=== PATIENT | female | born 1985 | race American Indian/Alaskan Native ===

== ENCOUNTER 2018-02-15 13:47 | Emergency (ER) | payer MEDICAID ==
[2018-02-15 14:11] VITALS: BP 142/98
--- NOTE | 2018-02-15 15:51 | Emergency Department Report ---
Eye Injury/Foreign Body - HPI Duration: 5 Days Eye Location: Right Severity: Moderate Eye Symptoms: Eye Pain: Yes, Blurred Vision: Yes, Eye Redness: Yes, Grinding/ Hammering Metal: No, Used Eye Protection: No, Contact Lens Use: No, Recalls Injury: No, Photophobia: No Other History: Patient is a director at a childcare center and has developed some redness of the eye with drainage. ED Review of Systems ROS: Stated complaint: POSS PINK EYE Other details as noted in HPI Comment: All other systems reviewed and negative ED Past Medical Hx - Past Medical History Additional medical history: neurocardiogenic syncope - Surgical History Past Surgical History?: Yes Additional Surgical History: c section. wisdom teeth - Social History Smoking Status: Current Every Day Smoker Substance Use Type: Alcohol - Medications Home Medications: Home Medications Medication Instructions Recorded Confirmed Last Taken Type Gentamicin 0.3% Ophth Soln 2 drops OP Q4H #1 bottle 02/15/18 Unknown Rx Naphazoline HCl/Pheniramine 15 ml OP TID #1 bottle 02/15/18 Unknown Rx [Naphcon-A Eye Drops] Eye Injury Exam - Exam General: Vital signs noted. No distress. Alert and acting appropriately. Patient's heart and lung exams are within normal limits. Exam shows an gentle injection and a mild exudate. This is present on the right eye only. ED Course Vital Signs 02/15/18 14:07 Temperature 98.4 F Pulse Rate 82 Respiratory 16 Rate Blood Pressure 142/98 O2 Sat by Pulse 100 Oximetry Critical care attestation.: If time is entered above; I have spent that time in minutes in the direct care of this critically ill patient, excluding procedure time. ED Disposition Clinical Impression: Bacterial conjunctivitis Disposition: DC-01 TO HOME OR SELFCARE Is pt being admited?: No Does the pt Need Aspirin: No Condition: Stable Instructions: Conjunctivitis (ED) Prescriptions: Gentamicin 0.3% Ophth Soln 2 drops OP Q4H #1 bottle Naphazoline HCl/Pheniramine [Naphcon-A Eye Drops] 15 ml OP TID #1 bottle Referrals: PRIMARY CARE, [Primary Care Provider] - 3-5 Days Forms: Work/School Release Form(ED)
== END 2018-02-15 15:59 | disposition home or self-care (01) ==
LOC: ED 13:47
DX: H10.9 Unspecified conjunctivitis (principal); F17.200 Nicotine dependence, unspecified, uncomplicated
CPT/HCPCS: 99282

== ENCOUNTER 2018-12-16 16:18 | Emergency (ER) | payer MEDICAID, OTHER ==
[2018-12-16] MEDS ORDERED: ASPIRIN PO ONE (16:37)
[2018-12-16 17:01] LABS: HCG Qualitative,Urine Negative (Negative)
[2018-12-16 17:04] LABS: Basophils % (Auto) 0.5 % (0.0-1.8); Eosinophils # (Auto) 0.1 K/mm3 (0.0-0.4); Eosinophils % (Auto) 0.8 % (0.0-4.3); Hematocrit 40.8 % (30.3-42.9); Hemoglobin 13.6 gm/dl (10.1-14.3); Lymphocytes # (Auto) 1.9 K/mm3 (1.2-5.4); Lymphocytes % (Auto) 27.8 % (13.4-35.0); Mean Corpuscular HGB Conc 33 % (30-34); Mean Corpuscular Volume 98 fl (79-97); Monocytes # (Auto) 0.4 K/mm3 (0.0-0.8); Monocytes % (Auto) 5.3 % (0.0-7.3); Platelet Count 251 K/mm3 (140-440); Red Blood Count 4.17 M/mm3 (3.65-5.03); Red Cell Distribution Width 14.4 % (13.2-15.2)
[2018-12-16 17:05] LABS: Bacteria,Urine 1+ /HPF (Negative); Bilirubin,Urine NEG (Negative); Blood,Urine NEG (Negative); Color,Urine Yellow (Yellow); Mucus,Urine FEW /HPF; Protein,Urine <15 mg/dL mg/dL (Negative)
[2018-12-16 17:21] LABS: BUN/Creatinine Ratio 11; Blood Urea Nitrogen 10 mg/dL (7-17); Calcium 9.9 mg/dL (8.4-10.2); Hemolysis Index 0
--- NOTE | 2018-12-16 18:28 | XRay Report ---
PROCEDURE: XR CHEST 1V AP HISTORY: Chest Pain FINDINGS: Single frontal view of the chest was acquired. The heart is normal in size. The lungs appea r clear. The pleura and mediastinum are within normal limits. IMPRESSION: No active disease in the chest This document is electronically signed by Gaudencio Arias MD., December 16 2018 06:26:44 PM ET
--- NOTE | 2018-12-16 18:47 | Emergency Department Report ---
ED Dizziness HPI - General Chief Complaint: Dizziness Stated Complaint: HEART CONDITION/DIZZINESS/ (L) ARM NUMBNESS Time Seen by Provider: 12/16/18 18:32 Source: patient Mode of arrival: Ambulatory Limitations: No Limitations - History of Present Illness Initial Comments: Patient is 33 years old female, nontoxic with no significant past medical history except for dizziness. Patient started having dizziness weeks ago. Patient stated that she had felt hot and started having generalized numbness and is waiting accompanied with shortness of breath and chest pain. Patient stated [facility] and she was given Tylenol with codeine for headache but nothing else was done for hot. Patient denied any weakness, numbness or tingling sensation. No bowel or bladder incontinence. MD Complaint: dizziness -: week(s) (2) Timing: gradual onset Description: sense of movement, "room spinning" History of Same: Yes Severity: mild Improves With: remaining still Associated Symptoms: denies other symptoms - Related Data Previous Rx's Medication Instructions Recorded Last Taken Type Gentamicin 0.3% Ophth Soln 2 drops OP Q4H #1 bottle 02/15/18 Unknown Rx Naphazoline HCl/Pheniramine 15 ml OP TID #1 bottle 02/15/18 Unknown Rx [Naphcon-A Eye Drops] Allergies Allergy/AdvReac Type Severity Reaction Status Date / Time No Known Allergies Allergy Verified 12/16/18 16:20 ED Review of Systems ROS: Stated complaint: HEART CONDITION/DIZZINESS/ (L) ARM NUMBNESS Other details as noted in HPI Comment: All other systems reviewed and negative Constitutional: denies: chills, fever Respiratory: shortness of breath. denies: cough, orthopnea Cardiovascular: chest pain Gastrointestinal: denies: abdominal pain, nausea, vomiting, diarrhea, constipation, hematemesis, hematochezia Musculoskeletal: denies: back pain Neurological: headache, vertigo. denies: weakness, numbness, paresthesias, confusion Psychiatric: anxiety ED Past Medical Hx - Past Medical History Hx Heart Attack/AMI: Yes Hx Psychiatric Treatment: Yes (alcohol abuse last drink 12/08/2018) Additional medical history: neurocardiogenic syncope, cardiomyopathy - Surgical History Additional Surgical History: c section. wisdom teeth - Social History Smoking Status: Current Every Day Smoker Substance Use Type: None - Medications Home Medications: Home Medications Medication Instructions Recorded Confirmed Last Taken Type Gentamicin 0.3% Ophth Soln 2 drops OP Q4H #1 bottle 02/15/18 Unknown Rx Naphazoline HCl/Pheniramine 15 ml OP TID #1 bottle 02/15/18 Unknown Rx [Naphcon-A Eye Drops] ED Physical Exam - General Limitations: No Limitations General appearance: alert, in no apparent distress - Head Head exam: Present: atraumatic, normocephalic, normal inspection - Eye Eye exam: Present: normal appearance, PERRL - ENT ENT exam: Present: normal exam, normal orophraynx, mucous membranes moist - Neck Neck exam: Present: normal inspection, full ROM. Absent: tenderness, meningismus, lymphadenopathy, thyromegaly - Respiratory Respiratory exam: Present: normal lung sounds bilaterally - Cardiovascular Cardiovascular Exam: Present: regular rate, normal rhythm, normal heart sounds - GI/Abdominal GI/Abdominal exam: Present: soft, normal bowel sounds. Absent: distended, tenderness, guarding, rebound, rigid, organomegaly, mass, bruit, pulsatile mass, hernia - Extremities Exam Extremities exam: Present: normal inspection, full ROM, normal capillary refill - Back Exam Back exam: Present: normal inspection, full ROM. Absent: tenderness, CVA tenderness (R), CVA tenderness (L), muscle spasm, paraspinal tenderness, vertebral tenderness - Neurological Exam Neurological exam: Present: alert, oriented X3, CN II-XII intact, normal gait, reflexes normal - Skin Skin exam: Present: warm, intact, normal color ED Course Vital Signs 12/16/18 12/16/18 12/16/18 16:32 18:37 19:10 Temperature 98.1 F 98.2 F Pulse Rate 81 100 H 98 H Respiratory 18 16 18 Rate Blood Pressure 109/76 Blood Pressure 124/79 117/73 [Left] O2 Sat by Pulse 100 96 99 Oximetry 12/16/18 21:01 Temperature Pulse Rate 59 L Respiratory 20 Rate Blood Pressure 117/73 Blood Pressure [Left] O2 Sat by Pulse 99 Oximetry ED Medical Decision Making - Lab Data Result diagrams: 12/16/18 16:52 12/16/18 16:52 - EKG Data -: EKG Interpreted by Ia EKG shows normal: sinus rhythm Rate: normal - EKG Data Interpretation: no acute changes - Radiology Data Radiology results: report reviewed CT brain is unremarkable. - Medical Decision Making Patient is 33 years old female, nontoxic with no significant past medical history except for dizziness. Patient started having dizziness weeks ago. Patient stated that she had felt hot and started having generalized numbness and is waiting accompanied with shortness of breath and chest pain. Patient stated that [facility] and she was given Tylenol with codeine for headache but nothing else was done for hot. Patient denied any weakness, numbness or tingling sensation. No bowel or bladder incontinence. Patient stated that she is feeling much better. Patient denied any dizziness. Chest pain is resolved. No more headache. CT scan is unremarkable for acute f inding. EKG is unremarkable. Troponin is negative. D-dimer is negative also. I advised the patient to follow up with her primary care physician in the next 2-3 days And to return to the ER if symptoms are not improved. Critical care attestation.: If time is entered above; I have spent that time in minutes in the direct care of this critically ill patient, excluding procedure time. ED Disposition Clinical Impression: Dizziness, Sinusitis Disposition: DC-01 TO HOME OR SELFCARE Is pt being admited?: No Condition: Stable Instructions: Dizziness (ED), Sinusitis (ED) Referrals: ROBINSON ZHAO MD [Primary Care Provider] - 3-5 Days
[2018-12-16] MEDS ORDERED: ANTIVERT PO ONE (20:11)
[2018-12-16 20:34] VITALS: BP 117/73
--- NOTE | 2018-12-16 22:03 | Cat Scan Report ---
PROCEDURE: CT HEAD/BRAIN WO CON TECHNIQUE: Spiral CT scan of the brain was obtained without the use of IV contrast. HISTORY: headache COMPARISONS: None FINDINGS: Brain: Brain density appears normal. No evidence of intracranial hemorrhage. No parenchymal hemorr marti, mass lesions or mass effect are seen. No abnormal extra-axial fluid collects or masses are see n. Ventricles: Ventricles are normal size and are midline. Bone Windows: No evidence of skull fracture. Paranasal sinuses: There is opacification one of the ethmoid air cells on the left. Visualized parana andrade sinuses are clear.. Only a portion of the maxillary sinuses are visualized on today's exam. Mastoid air cells: Visualized mastoid air cells are clear.. IMPRESSION: Minimal paranasal sinus disease as described otherwise negative exam. This document is electronically signed by Rian Mcqueen MD., December 16 2018 10:01:39 PM ET
== END 2018-12-16 22:35 | disposition home or self-care (01) ==
LOC: ED 16:18
DX: R42 Dizziness and giddiness (principal); J32.9 Chronic sinusitis, unspecified; I25.2 Old myocardial infarction; F17.200 Nicotine dependence, unspecified, uncomplicated
CPT/HCPCS: 36415; 70450; 71045; 80048; 81001; 81025; 84484; 85025; 85379; 93005; 93010; 99285

== ENCOUNTER 2020-06-27 17:20 | Emergency (ER) | payer OTHER ==
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
[2020-06-27 18:38] LABS: Basophils % (Auto) 0.4 % (0.0-1.8); Eosinophils # (Auto) 0.1 K/mm3 (0.0-0.4); Eosinophils % (Auto) 0.7 % (0.0-4.3); Hematocrit 37.9 % (30.3-42.9); Hemoglobin 12.6 gm/dl (10.1-14.3); Lymphocytes # (Auto) 2.2 K/mm3 (1.2-5.4); Mean Corpuscular HGB Conc 33 % (30-34); Mean Corpuscular Volume 97 fl (79-97); Monocytes # (Auto) 0.4 K/mm3 (0.0-0.8); Monocytes % (Auto) 5.8 % (0.0-7.3); Platelet Count 250 K/mm3 (140-440); Red Blood Count 3.92 M/mm3 (3.65-5.03); Red Cell Distribution Width 15.8 % (13.2-15.2)
--- NOTE | 2020-06-27 18:45 | XRay Report ---
CHEST 2 VIEWS INDICATION / CLINICAL INFORMATION: Chest Pain. COMPARISON: 12/16/2018 FINDINGS: SUPPORT DEVICES: None. HEART / MEDIASTINUM: No significant abnormality. LUNGS / PLEURA: No significant pulmonary or pleural abnormality. No pneumothorax. ADDITIONAL FINDINGS: No significant additional findings. IMPRESSION: 1. No acute findings. Signer Name: Sea Tellez MD Signed: 06/27/2020 6:41 PM Workstation Name: [id number]
[2020-06-27 18:57] LABS: Alanine Aminotransferase 10 units/L (7-56); Albumin 4.3 g/dL (3.9-5); BUN/Creatinine Ratio 8; Blood Urea Nitrogen 6 mg/dL (7-17); Calcium 9.2 mg/dL (8.4-10.2); Hemolysis Index 7
[2020-06-27] MEDS ORDERED: ASPIRIN 325 MG TAB PO ONE (22:20)
[2020-06-27] MEDS ORDERED: ACETAMINOPHEN 500 MG TAB PO ONE (23:32)
[2020-06-27] MEDS ORDERED: POTASSIUM CHLORIDE ER 20 MEQ TAB PO ONE (23:32)
[2020-06-27] MEDS ORDERED: FAMOTIDINE 20 MG TAB PO ONE (23:37)
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
[2020-06-28 02:24] VITALS: BP 143/90
== END 2020-06-28 02:00 | disposition home or self-care (01) ==
LOC: ED 17:20
DX: M94.0 Chondrocostal junction syndrome [Tietze] (principal); F41.1 Generalized anxiety disorder; F43.0 Acute stress reaction; R07.89 Other chest pain; I25.2 Old myocardial infarction; F12.10 Cannabis abuse, uncomplicated; Z98.890 Other specified postprocedural states; Z79.2 Long term (current) use of antibiotics; Z79.899 Other long term (current) drug therapy
CPT/HCPCS: 36415; 71046; 80053; 83690; 83880; 84484; 85025; 93005

== ENCOUNTER 2020-07-22 17:17 | Emergency (ER) | payer OTHER ==
[2020-07-22 18:03] VITALS: BP 126/88
[2020-07-22 18:58] LABS: Basophils % (Auto) 0.3 % (0.0-1.8); Eosinophils # (Auto) 0.1 K/mm3 (0.0-0.4); Eosinophils % (Auto) 0.6 % (0.0-4.3); Hematocrit 39.5 % (30.3-42.9); Lymphocytes # (Auto) 2.6 K/mm3 (1.2-5.4); Lymphocytes % (Auto) 24.9 % (13.4-35.0); Mean Corpuscular HGB Conc 33 % (30-34); Mean Corpuscular Volume 97 fl (79-97); Monocytes # (Auto) 0.7 K/mm3 (0.0-0.8); Monocytes % (Auto) 6.8 % (0.0-7.3); Platelet Count 279 K/mm3 (140-440); Red Blood Count 4.08 M/mm3 (3.65-5.03); Red Cell Distribution Width 15.9 % (13.2-15.2)
[2020-07-22 19:15] LABS: BUN/Creatinine Ratio 13; Blood Urea Nitrogen 12 mg/dL (7-17); Calcium 10.1 mg/dL (8.4-10.2); Hemolysis Index 12
--- NOTE | 2020-07-22 19:52 | XRay Report ---
XR chest routine 2V INDICATION / CLINICAL INFORMATION: Chest Pain COMPARISON: 06/27/2020 FINDINGS: SUPPORT DEVICES: None. HEART / MEDIASTINUM: No significant abnormality. LUNGS / PLEURA: Lungs are clear. Costophrenic sulci are sharp. No pneumothorax. ADDITIONAL FINDINGS: No significant additional findings. Left nipple piercing. IMPRESSION: 1. No acute findings. Signer Name: Sammy Garcia MD Signed: 07/22/2020 7:47 PM Workstation Name: [id number]
== END 2020-07-22 20:00 | disposition left against medical advice (07) ==
LOC: ED 17:17
DX: R07.89 Other chest pain (principal); R06.02 Shortness of breath; Z53.21 Procedure and treatment not carried out due to patient leaving prior to being seen by health care provider
CPT/HCPCS: 36415; 71046; 80048; 84484; 84703; 85025; 93005

== ENCOUNTER 2020-08-29 09:31 | Emergency (ER) | payer OTHER ==
--- NOTE | 2020-08-29 09:33 | Event Note ---
ED Screening Note ED Screening Note: 35-year-old female that presents with chest pain, SOB and chest tightness. HX of cardiac. This initial assessment/diagnostic orders/clinical plan/treatment(s) is/are subject to change based on patients health status, clinical progression and re- assessment by fellow clinical providers in the ED. Further treatment and workup at subsequent clinical providers discretion. Patient/guardian urged not to elope from the ED as their condition may be serious if not clinically assessed and managed. Initial orders include: cardiac workup
[2020-08-29 10:02] LABS: Basophils % (Auto) 0.6 % (0.0-1.8); Eosinophils # (Auto) 0.1 K/mm3 (0.0-0.4); Eosinophils % (Auto) 1.1 % (0.0-4.3); Hematocrit 37.8 % (30.3-42.9); Hemoglobin 12.3 gm/dl (10.1-14.3); Lymphocytes # (Auto) 1.8 K/mm3 (1.2-5.4); Lymphocytes % (Auto) 30.2 % (13.4-35.0); Mean Corpuscular HGB Conc 33 % (30-34); Mean Corpuscular Volume 96 fl (79-97); Monocytes # (Auto) 0.3 K/mm3 (0.0-0.8); Monocytes % (Auto) 5.1 % (0.0-7.3); Platelet Count 319 K/mm3 (140-440); Red Blood Count 3.95 M/mm3 (3.65-5.03); Red Cell Distribution Width 15.1 % (13.2-15.2)
[2020-08-29 10:25] LABS: INR 0.87 (0.87-1.13)
[2020-08-29 10:26] LABS: Partial Thromboplastin Time 30.9 Sec. (24.2-36.6)
[2020-08-29 10:27] LABS: Alanine Aminotransferase 13 units/L (7-56); Albumin 4.3 g/dL (3.9-5); BUN/Creatinine Ratio 13; Blood Urea Nitrogen 10 mg/dL (7-17); Calcium 9.5 mg/dL (8.4-10.2); Hemolysis Index 3
--- NOTE | 2020-08-29 10:46 | Emergency Department Report ---
ED Chest Pain HPI - General Chief Complaint: Chest Pain Stated Complaint: CHEST PAIN/DIZZY Time Seen by Provider: 08/29/20 09:32 Source: patient Mode of arrival: Ambulatory Limitations: No Limitations - History of Present Illness Initial Comments: Patient is a 35-year-old F [place] female with past medical history of cardiomyopathy who is presenting with chest pain. Patient states that 4 weeks she has sharp chest pain in the left side and sometimes a tight sensation feels like something is pressing on her chest and back at the same time. States this occurs randomly. Lasts for several seconds to several minutes at a time. Patient recently wore week long event monitor which is being analyzed and she does not have the results. She also states she recently was given echocardiogram and her EF is 40%. Patient states she is compliant with Coreg. Patient was concerned this morning that her blood pressure was in the 150s systolic. She called her physician and was told to come to the emergency department for evaluation. She denies any current shortness of breath cough cold congestion nausea vomiting and diaphoresis. States there is no exertional component to her chest pain and no leg swelling. - Related Data Previous Rx's Medication Instructions Recorded Last Taken Type Gentamicin 0.3% Ophth Soln 2 drops OP Q4H #1 bottle 02/15/18 Unknown Rx Naphazoline HCl/Pheniramine 15 ml OP TID #1 bottle 02/15/18 Unknown Rx [Naphcon-A Eye Drops] Amoxicillin/Potassium Clav 1 each PO BID #20 tablet 12/16/18 Unknown Rx [Augmentin 875-125 Tablet] Meclizine [Antivert] 25 mg PO TID PRN #30 tablet 12/16/18 Unknown Rx Naproxen 500 mg PO Q12H PRN #24 tablet 06/28/20 Unknown Rx hydrOXYzine PAMOATE [Vistaril] 25 mg PO Q6HR PRN #30 capsule 06/28/20 Unknown Rx hydroCHLOROthiazide [HCTZ] 25 mg PO QDAY #30 tablet 08/29/20 Unknown Rx Allergies Allergy/AdvReac Type Severity Reaction Status Date / Time No Known Allergies Allergy Verified 08/29/20 09:32 Heart Score - HEART Score History: Slightly suspicious EKG: Normal Age: < 45 Risk factors: 1-2 risk factors Troponin: < normal limit HEART Score: 1 ED Review of Systems ROS: Stated complaint: CHEST PAIN/DIZZY Other details as noted in HPI Comment: All other systems reviewed and negative ED Past Medical Hx - Past Medical History Hx Hypertension: Yes Hx Heart Attack/AMI: No Hx Congestive Heart Failure: Yes (EF 40%) Hx Psychiatric Treatment: Yes (alcohol abuse last drink 12/08/2018) Additional medical history: neurocardiogenic syncope, cardiomyopathy - Surgical History Additional Surgical History: c section. wisdom teeth - Social History Smoking Status: Never Smoker Substance Use Type: None - Medications Home Medications: Home Medications Medication Instructions Recorded Confirmed Last Taken Type Gentamicin 0.3% Ophth Soln 2 drops OP Q4H #1 bottle 02/15/18 Unknown Rx Naphazoline HCl/Pheniramine 15 ml OP TID #1 bottle 02/15/18 Unknown Rx [Naphcon-A Eye Drops] Amoxicillin/Potassium Clav 1 each PO BID #20 tablet 12/16/18 Unknown Rx [Augmentin 875-125 Tablet] Meclizine [Antivert] 25 mg PO TID PRN #30 tablet 12/16/18 Unknown Rx Naproxen 500 mg PO Q12H PRN #24 tablet 06/28/20 Unknown Rx hydrOXYzine PAMOATE [Vistaril] 25 mg PO Q6HR PRN #30 capsule 06/28/20 Unknown Rx hydroCHLOROthiazide [HCTZ] 25 mg PO QDAY #30 tablet 08/29/20 Unknown Rx ED Physical Exam - General Limitations: No Limitations General appearance: alert, in no apparent distress - Head Head exam: Present: atraumatic, normocephalic - Eye Eye exam: Present: normal appearance, PERRL, EOMI - ENT ENT exam: Present: normal orophraynx, mucous membranes moist - Neck Neck exam: Present: normal inspection - Respiratory Respiratory exam: Present: normal lung sounds bilaterally. Absent: respiratory distress, wheezes, rales, rhonchi - Cardiovascular Cardiovascular Exam: Present: regular rate, normal rhythm, normal heart sounds. Absent: systolic murmur, diastolic murmur, rubs, gallop - GI/Abdominal GI/Abdominal exam: Present: soft, normal bowel sounds. Absent: distended, tenderness, guarding, rebound - Extremities Exam Extremities exam: Present: normal inspection - Back Exam Back exam: Present: normal inspection - Neurological Exam Neurological exam: Present: alert, oriented X3 - Psychiatric Psychiatric exam: Present: normal affect, normal mood - Skin Skin exam: Present: warm, dry, intact, normal color. Absent: rash ED Course Vital Signs 08/29/20 09:34 Temperature 98.5 F Pulse Rate 85 Respiratory 20 Rate Blood Pressure 162/109 O2 Sat by Pulse 98 Oximetry NELSON score - Nelson Score Age > 65: (0) No Aspirin use within the Past 7 Days: (1) Yes 3 or more CAD Risk Factors: (0) No 2 or more Angina events in past 24 hrs: (1) Yes Known CAD with more than 50% Stenosis: (0) No Elevated Cardiac Markers: (0) No ST Deviation Greater than 0.5mm: (0) No NELSON Score: 2 ED Medical Decision Making - Lab Data Result diagrams: 08/29/20 09:39 08/29/20 09:39 Lab Results 08/29/20 08/29/20 08/29/20 Range/Units 09:39 09:39 09:39 WBC 6.0 (4.5-11.0) K/mm3 RBC 3.95 (3.65-5.03) M/mm3 Hgb 12.3 (10.1-14.3) gm/dl Hct 37.8 (30.3-42.9) % MCV 96 (79-97) fl MCH 31 (28-32) pg MCHC 33 (30-34) % RDW 15.1 (13.2-15.2) % Plt Count 319 (140-440) K/mm3 Lymph % (Auto) 30.2 (13.4-35.0) % Scott % (Auto) 5.1 (0.0-7.3) % Eos % (Auto) 1.1 (0.0-4.3) % Baso % (Auto) 0.6 (0.0-1.8) % Lymph # (Auto) 1.8 (1.2-5.4) K/mm3 Scott # (Auto) 0.3 (0.0-0.8) K/mm3 Eos # (Auto) 0.1 (0.0-0.4) K/mm3 Baso # (Auto) 0.0 (0.0-0.1) K/mm3 Seg Neutrophils % 63.0 (40.0-70.0) % Seg Neutrophils # 3.8 (1.8-7.7) K/mm3 PT 11.7 L (12.2-14.9) Sec. INR 0.87 (0.87-1.13) APTT 30.9 (24.2-36.6) Sec. Sodium (137-145) mmol/L Potassium (3.6-5.0) mmol/L Chloride (98-107) mmol/L Carbon Dioxide (22-30) mmol/L Anion Gap mmol/L BUN (7-17) mg/dL Creatinine (0.6-1.2) mg/dL Estimated GFR ml/min BUN/Creatinine Ratio % Glucose (65-100) mg/dL Calcium (8.4-10.2) mg/dL Total Bilirubin (0.1-1.2) mg/dL AST (5-40) units/L ALT (7-56) units/L Alkaline Phosphatase (35-129) units/L Troponin T (0.00-0.029) ng/mL Total Protein (6.3-8.2) g/dL Albumin (3.9-5) g/dL Albumin/Globulin Ratio % HCG, Qual Negative (Negative) 08/29/20 Range/Units 09:39 WBC (4.5-11.0) K/mm3 RBC (3.65-5.03) M/mm3 Hgb (10.1-14.3) gm/dl Hct (30.3-42.9) % MCV (79-97) fl MCH (28-32) pg MCHC (30-34) % RDW (13.2-15.2) % Plt Count (140-440) K/mm3 Lymph % (Auto) (13.4-35.0) % Scott % (Auto) (0.0-7.3) % Eos % (Auto) (0.0-4.3) % Baso % (Auto) (0.0-1.8) % Lymph # (Auto) (1.2-5.4) K/mm3 Scott # (Auto) (0.0-0.8) K/mm3 Eos # (Auto) (0.0-0.4) K/mm3 Baso # (Auto) (0.0-0.1) K/mm3 Seg Neutrophils % (40.0-70.0) % Seg Neutrophils # (1.8-7.7) K/mm3 PT (12.2-14.9) Sec. INR (0.87-1.13) APTT (24.2-36.6) Sec. Sodium 136 L (137-145) mmol/L Potassium 4.2 (3.6-5.0) mmol/L Chloride 102.2 (98-107) mmol/L Carbon Dioxide 24 (22-30) mmol/L Anion Gap 14 mmol/L BUN 10 (7-17) mg/dL Creatinine 0.8 (0.6-1.2) mg/dL Estimated GFR > 60 ml/min BUN/Creatinine Ratio 13 % Glucose 98 (65-100) mg/dL Calcium 9.5 (8.4-10.2) mg/dL Total Bilirubin < 0.20 (0.1-1.2) mg/dL AST 20 (5-40) units/L ALT 13 (7-56) units/L Alkaline Phosphatase 53 (35-129) units/L Troponin T < 0.010 (0.00-0.029) ng/mL Total Protein 7.4 (6.3-8.2) g/dL Albumin 4.3 (3.9-5) g/dL Albumin/Globulin Ratio 1.4 % HCG, Qual (Negative) - EKG Data -: EKG Interpreted by Dc EKG shows normal: sinus rhythm, axis, intervals, QRS complexes, ST-T waves Rate: normal - EKG Data Interpretation: normal EKG - Radiology Data [facility] [address] [place] [address] XRay Report Signed Patient: JOANIE IZQUIERDO MR#: [id number] 6 : 1985 Acct:[id number] Age/Sex: 35 / F ADM Date: 08/29/20 Loc: ED Attending Dr: Ordering Physician: RAO MILLAN NP Date of Service: 08/29/20 Procedure(s): XR chest routine 2V Accession Number(s): [id number] cc: RAO MILLAN NP Fluoro Time In Minutes: CHEST 2 VIEWS, 08/29/2020 10:37 AM INDICATION: Chest pain COMPARISON: Chest radiograph, 07/22/2020 FINDINGS: Support devices: None. Heart: The cardiac silhouette is normal in size. Lungs/pleura: The lungs are clear of focal airspace disease or significant pleu ral effusion. Additional findings: No significant acute abnormality. IMPRESSION: 1. No evidence of acute cardiopulmonary process. Signer Name: Tracey Nguyen MD Signed: 08/29/2020 10:55 AM Workstation Name: [id number] - Medical Decision Making Patient's laboratory studies are within normal limits. There does not appear to be any evidence of any fluid overload from cardiomyopathy. Troponin is negative EKG is within normal limits. Patient will be discharged home follow-up with her primary care physician. We will add hydrochlorothiazide to her regimen for better blood pressure control. Critical care attestation.: If time is entered above; I have spent that time in minutes in the direct care of this critically ill patient, excluding procedure time. ED Disposition Clinical Impression: Atypical chest pain, Hypertensive urgency Disposition: DC-01 TO HOME OR SELFCARE Is pt being admited?: No Does the pt Need Aspirin: No Condition: Stable Instructions: Chest Pain (ED), Nonspecific Chest Pain, Adult Prescriptions: hydroCHLOROthiazide [HCTZ] 25 mg PO QDAY #30 tablet Referrals: PRIMARY CAREMD [Primary Care Provider] - 3-5 Days Time of Disposition: 11:18
--- NOTE | 2020-08-29 10:59 | XRay Report ---
CHEST 2 VIEWS, 08/29/2020 10:37 AM INDICATION: Chest pain COMPARISON: Chest radiograph, 07/22/2020 FINDINGS: Support devices: None. Heart: The cardiac silhouette is normal in size. Lungs/pleura: The lungs are clear of focal airspace disease or significant pleural effusion. Additional findings: No significant acute abnormality. IMPRESSION: 1. No evidence of acute cardiopulmonary process. Signer Name: Tracey Nguyen MD Signed: 08/29/2020 10:55 AM Workstation Name: [id number]
[2020-08-29 11:27] VITALS: BP 140/96
[2020-08-29 11:29] LABS: Bilirubin,Urine NEG (Negative); Blood,Urine NEG (Negative); Color,Urine Yellow (Yellow); Mucus,Urine FEW /HPF; Protein,Urine <15 mg/dL mg/dL (Negative); RBC,Urine < 1.0 /HPF (0.0-6.0); Urobilinogen,Urine < 2.0 mg/dL (<2.0); WBC,Urine < 1.0 /HPF (0.0-6.0)
== END 2020-08-29 11:37 | disposition home or self-care (01) ==
LOC: ED 09:31
DX: I16.0 Hypertensive urgency (principal); R07.89 Other chest pain; I50.9 Heart failure, unspecified; Z98.890 Other specified postprocedural states; Z79.2 Long term (current) use of antibiotics; Z79.899 Other long term (current) drug therapy
CPT/HCPCS: 36415; 71046; 80053; 81001; 84484; 84703; 85025; 85610; 85730; 93005